=== PATIENT | female | born 1985 | race Caucasian/White ===

== ENCOUNTER 2020-03-21 04:01 | Emergency (ER) | payer MEDICAID, OTHER ==
[~2020-03-21] VITALS: Ht 167.6 cm; Wt 75.0 kg
--- NOTE | 2020-03-21 04:38 | NUR ---
PT PACING AROUND ROOM WITH PRESSURED SPEECH. PT'S BROTHER AT BEDSIDE ABLE TO CALM HER SOMEWHAT. SHE IS NOT COOPERATIVE WITH STAFF AT THIS TIME. SHE WAS AMBULATORY TO RESTROOM WITH A STEADY GAIT, URINE SAMPLE PROVIDED. LABELED AND PLACED IN LAB SPECIMEN BAG
--- NOTE | 2020-03-21 04:41 | NUR ---
ISRAEL GRIFFIN AT BEDSIDE EVALUATING PT
[2020-03-21] MEDS ORDERED: LORazepam 1MG TABLET ONE ×3 (04:51→19:43)
--- NOTE | 2020-03-21 04:54 | NUR ---
PT MEDICATED PER EMAR, 5 RIGHTS ADDRESSED.
[2020-03-21] MEDS ORDERED: LORazepam 1MG TABLET PO ONE ×2 (05:00→14:00)
--- NOTE | 2020-03-21 05:08 | NUR ---
PT KEEPS COMING OUT OF HER ROOM TALKING TO THIS RN. PT EASILY REDIRECTED TO HER ROOM AT THIS TIME. PROVIDED WITH PEN AND PAPER AND PT BACK IN ROOM WRITING ALL OVER PAPER PROVIDED.
[2020-03-21 05:17] LABS: MEAN CORPUSCULAR HEMOGLOBIN 30.6 pg (27.0-34.8); MEAN PLATELET VOLUME 9.3 fL (7.4-10.4); PLATELET COUNT 203 x10^3/uL (130-400); RED BLOOD COUNT 4.35 x10^6/uL (3.82-5.3); RED CELL DISTRIBUTION WIDTH 14.3 % (9.6-15.2)
[2020-03-21 05:21] LABS: ALANINE AMINOTRANSFERASE 24 U/L (12-78); ALBUMIN 3.8 g/dL (3.4-5.0); ANION GAP 6 mmol/L (5-15); CALCIUM 8.9 mg/dL (8.5-10.1); CHLORIDE 110 mmol/L (98-107); CREATININE 0.69 mg/dL (0.55-1.02); SALICYLATE LEVEL 2.9 mg/dL (2.8-20.0)
[2020-03-21 05:27] LABS: ALKALINE PHOSPHATASE 98 U/L (45-117); BILIRUBIN,TOTAL 0.4 mg/dL (0.2-1.0)
--- NOTE | 2020-03-21 05:35 | NUR ---
PT'S BROTHER RENE LORNE [phone]
--- NOTE | 2020-03-21 05:35 | NUR ---
PT STILL CONTINUING TO GO TO THE DOOR OF HER ROOM AND SPEAK TO SOMEONE IN THE HALLWAY THAT'S NOT THERE. SHE CONTINUES TO DENY AUDITORY OR VISUAL HALLUCINATIONS. REMAINS EASILY DIRECTED BACK TO ROOM AT THIS TIME.
[2020-03-21 05:41] LABS: MD YES
[2020-03-21 05:43] LABS: <PLATELET ESTIMATE> ADEQUATE; <RBC MORPHOLOGY> NORMAL; BASOS#(MANUAL) 0.09 x10^3/uL (0-0.1); BASOS% (MANUAL) 1 % (0-1); LYMPH#(MANUAL) 3.38 x10^3/uL (1-3.4); LYMPHS% (MANUAL) 36 % (22-44); MONOS#(MANUAL) 0.66 x10^3/uL (0.3-2.7); MONOS% (MANUAL) 7 % (2-9); REACTIVE LYMPHS # (MANUAL) 0.28 x10^3/uL (0-0); REACTIVE LYMPHS % (MANUAL) 3 % (0-0); SEG#(MANUAL) 4.98 x10^3/uL (1.8-6.8); SEGS% (MANUAL) 53 % (42-75)
[2020-03-21 05:44] LABS: <PLT MORPHOLOGY> NORMAL PLT MORPH
[2020-03-21 05:54] LABS: AMPHETAMINE SCREEN, URINE Negative (Negative); BARBITURATE SCREEN, URINE Negative (Negative); BENZODIAZEPINE SCREEN, URINE Negative (Negative); CANNABINOID SCREEN, URINE Positive (Negative); COCAINE SCREEN, URINE Negative (Negative); METHADONE SCREEN, URINE Negative (Negative); OPIATE SCREEN, URINE Negative (Negative)
--- NOTE | 2020-03-21 06:30 | NUR ---
PT HAS CALMED DOWN. NOW SITTING STILL ON [employer] PLAYING ON PHONE. NO LONGER PACING ROOM OR COMING TO THE DOOR.
--- NOTE | 2020-03-21 06:49 | NUR ---
received bedside report from ALLAN Moreland. zahra at bedside.
--- NOTE | 2020-03-21 07:13 | NUR ---
PT TRANSFERRED TO ROOM 38 WITH SITTER. ALL SAFETY MEASURES OBTAINED.
--- NOTE | 2020-03-21 07:15 | NUR ---
DIET TRAY ORDERED
--- NOTE | 2020-03-21 08:03 | NUR ---
pt stating "I HAVE A COURT DATE AT 9. WHY AM I IN THIS GOWN? WHEN IS THE DOCTOR COMING? I GOT TO GO!" SPOKE WITH PT BROTHER, HE IS GOING TO CALL THE COURT AND RESCHEDULE THE APPT. PT GIVEN DIET SORAYA.
--- NOTE | 2020-03-21 09:38 | NUR ---
LATE ENTRY FOR 0900 BROTHER CAME TO VISIT. BROTHER STATES THAT HE GOT HER COURT RESCHEDULED. PT IS SLEEPING ON GURNEY. NADN. RESPS EQUAL AND UNLABORED. ALL SAFETY MEASURES OBTAINED. SITTER AT DOORWAY.
--- NOTE | 2020-03-21 10:33 | NUR ---
BROTHER CALLED. PT TAKES ATIVAN 1MG AT HOME. PT ALSO HAD SOME ANTIBIOTIC RX'S THAT WERE PRESCRIBED TO HER IN SEP AND OCT 2019
--- NOTE | 2020-03-21 10:53 | NUR ---
PT CONTINUES TO SLEEP ON [facility]. ALL SAFETY MEASURES OBTAINED. SITTER AT DOORWAY. PT WITHIN FULL VIEW
--- NOTE | 2020-03-21 11:01 | NUR ---
DIET TRAY ORDERED
--- NOTE | 2020-03-21 12:40 | NUR ---
RECEIVED BEDSIDE REPORT FROM ALLAN ROMAN. PT USING PHONE AT THIS TIME.
--- NOTE | 2020-03-21 12:41 | NUR ---
LATE ENTRY FOR 1200: BEDSIDE REPORT TO AASHISH ROMAN RN.
--- NOTE | 2020-03-21 13:23 | NUR ---
PT RESTING ON [facility]. ALL SAFETY MEASURES OBTAINED. PT NOW ON LEGAL HOLD. SITTER AT DOOR. PT WITHIN FULL VIEW.
--- NOTE | 2020-03-21 13:24 | NUR ---
DIET TRAY DELIVERED.
--- NOTE | 2020-03-21 13:37 | NUR ---
spoke with brother. REALYED POC. BROTHER VERBALIZED UNDERSTANDING.
--- NOTE | 2020-03-21 14:30 | NUR ---
PT SUPER AGITATED. PT SITTING IN CHAIR. PT REQUESTING TO USE PHONE. STATED TO PATIENT THAT WILL DEPEND ON HER BEHAVIOR. WE WILL READDRESS IN 20 MINS. SPOKE WITH MAXX SANDERS REGARDING AGITATION. ORDERS TO FOLLOW
--- NOTE | 2020-03-21 14:37 | NUR ---
CHAIR, GOMES STAND, AND PEN TAKEN AWAY FROM PATIENT. PT WAS COOPERATIVE WITH REMOVING ITEMS FROM ROOM. REITERATED PHONE USE DEPENDENT ON BEHAVIOR. PT SITTING ON GURNEY. NADN. ALL SAFETY MEASURES OBTAINED. SITTER BY DOORWAY PT WITHIN FULL VIEW.
[2020-03-21] MEDS ORDERED: HALOPERIDOL 5 MG/ML IM PRN (15:00)
[2020-03-21] MEDS ORDERED: DIPHENHYDRAMINE 50 MG CAPSULE PO PRN (15:00)
[2020-03-21] MEDS ORDERED: DIPHENHYDRAMINE 50 MG/ML, 1ML IM PRN (15:00)
[2020-03-21] MEDS ORDERED: LORazepam 2 MG/ML, 1ML IM PRN (15:00)
--- NOTE | 2020-03-21 15:13 | NUR ---
PT CALM AND USING PHONE.
[2020-03-21] MEDS ORDERED: HALOPERIDOL 5 MG TABLET ONE (15:45)
[2020-03-21] MEDS: HALOPERIDOL 5 MG TABLET PO PRN (15:50)
--- NOTE | 2020-03-21 15:51 | NUR ---
PT NOW RESTING ON GURNEY. NADN. PT GIVEN WARM BLANKET. ALL SAFETY MEASURES OBTAINED. SITTER AT DOORWAY.
--- NOTE | 2020-03-21 16:01 | NUR ---
PT BROTHER BROUGHT IN HER FOLDER. BROTHER STATED HE DIDN'T WANT TO VISIT AT THIS TIME. GAVE FOLDER TO PT TO LOOK THROUGH. PT COULDN'T FIND THE PAPERS SHE WANTED. FOLDER IN PT BELONGING BAG WITH PT LABEL AND IN LOCKER.
--- NOTE | 2020-03-21 17:21 | NUR ---
PT RESTING ON VIVI. YUE. DIET TRAY ORDERED. ALL SAFETY MEASURES OBTAINED.
--- NOTE | 2020-03-21 17:55 | NUR ---
PACKET FAXED TO [facility] AND [facility]
--- NOTE | 2020-03-21 18:21 | NUR ---
MEAL PROVIDED TO PT. SITTER AT DOOR, ROOM REMAINS SECURED.
--- NOTE | 2020-03-21 18:36 | NUR ---
pt resting on gursushma. nadn. resps equal and unlabored. all safety measures obtained.
--- NOTE | 2020-03-21 19:02 | NUR ---
BEDSIDE REPORT TO ALLAN KATZ.
--- NOTE | 2020-03-21 19:05 | NUR ---
REPORT FROM JAD ASSUMED CARE OF PT
[2020-03-21] MEDS ORDERED: OLANZAPINE 10 MG TABLET ONE (19:42)
[2020-03-21] MEDS: LORazepam 1MG TABLET PO PRN (19:51)
[2020-03-21] MEDS: OLANZAPINE 10 MG TABLET PO SCH (19:51)
--- NOTE | 2020-03-21 19:55 | NUR ---
PT AWAKENS EASILY MEDICATED PT WITH DAILY MEDS AND ATIVAN, PT ATE MEAL PROVIDED EARLIER, SITTER AT DOORWAY, ROOM SECURE PT IN NAD
[2020-03-21] MEDS ORDERED: ACETAMINOPHEN 650 MG/20.3 ML UDC ONE (20:04)
--- NOTE | 2020-03-21 21:18 | NUR ---
Patient is resting comfortably in bed.
--- NOTE | 2020-03-21 23:43 | NUR ---
Patient is resting comfortably in bed.
--- NOTE | 2020-03-22 01:00 | NUR ---
Patient is resting comfortably in bed.
--- NOTE | 2020-03-22 02:00 | NUR ---
Patient is resting comfortably in bed.
--- NOTE | 2020-03-22 04:06 | NUR ---
Patient is resting comfortably in bed.
--- NOTE | 2020-03-22 06:56 | NUR ---
report of pt from glen rogers and assuming care of pt at this time.
--- NOTE | 2020-03-22 07:10 | NUR ---
pt asleep in [facility] at this time; sascha. sitter outside ofpt room for direct observation of pt at this time.
--- NOTE | 2020-03-22 07:18 | NUR ---
pt brother called for updates on pt. Pt brother says he will call back mid day to check on pt and see how she is doing.
[2020-03-22] MEDS ORDERED: OLANZAPINE 10 MG TABLET ONE (09:57)
[2020-03-22] MEDS: OLANZAPINE 10 MG TABLET PO SCH (10:05)
--- NOTE | 2020-03-22 10:07 | NUR ---
REPORT RECEIVED FROM ALLAN AVENDAÑO, THIS RN HAS ASSUMED CARE. PT HAS ALREADY HAD BREAKFAST. ROOM IS SECURE, SITTER MONITORING FROM [facility] FOR SAFETY. PT IS A&OX4, RESPS EVEN AND UNLABORED. PT DENIES PAIN. PT DENIES SUICIDALITY.
--- NOTE | 2020-03-22 11:10 | NUR ---
PT'S BROTHER IS PATRICIA VILLELA, NUMBER [phone] PROVIDED IF STAFF HAVE ANY QUESTIONS ABOUT PT HISTORY.
--- NOTE | 2020-03-22 11:32 | NUR ---
pt sleeping, resps even and unlabored. sitter monitoring from bedside for safety, room remains secure.
--- NOTE | 2020-03-22 11:45 | NUR ---
pt up to bathroom with sitter assist.
--- NOTE | 2020-03-22 12:27 | NUR ---
PT SLEEPING ON GURNEY, RESPS EVEN AND UNLABORED. SITTER MONITORING FROM [facility] FOR SAFETY. HOSPITAL BED REQUESTED.
--- NOTE | 2020-03-22 13:08 | NUR ---
pt still sleeping, repss even and unlabored. nadn. sitter monitoring from hallway for safety, room remains secure.
--- NOTE | 2020-03-22 13:22 | NUR ---
hospital bed requested a second time, per staff radiographer there is a hospital wide shortage, staff continuing to search for bed.
--- NOTE | 2020-03-22 13:41 | NUR ---
REPORT GIVEN TO ALLAN MUELLER WHO IS ASSUMING CARE. PT REMAINS ASLEEP, RESPS EVEN AND UNLABORED. SITTER MONITORING FROM [facility] FOR SAFETY. ROOM SECURE. HOSPITAL BED HAS ARRIVED, RECEIVING RN AWARE OF NEED TO COMPLETE MED REC AND PLACE PT ON HOSPITAL BED ONCE SHE AWAKES.
--- NOTE | 2020-03-22 13:52 | NUR ---
REPORT FROM ALLAN GONZALEZ. PT CARE RESPONSIBILITIES ASSUMED.
--- NOTE | 2020-03-22 15:57 | NUR ---
PT MOVED TO HOSPITAL BED. PROVIDED WITH FRESH WARM BLANKETS. DENIES ANY FURTHER NEEDS OR CONCERNS AT THIS TIME. SITTER REMAINS IN DIRECT LINE OF SIGHT.
--- NOTE | 2020-03-22 17:39 | NUR ---
PT UP TO PHONE WITH STAFF STANDBY, TO CALL BROTHER.
--- NOTE | 2020-03-22 18:03 | NUR ---
MEAL TRAY GIVEN TO PATIENT.
--- NOTE | 2020-03-22 19:35 | NUR ---
PT UP TO PHONE WITH STAFF STANDBY. PT PROVIDED WITH EXTRA SNACKS AND DRINKS, PER REQUEST. DENIES ANY FURTHER NEEDS OR CONCERNS AT THIS TIME.
--- NOTE | 2020-03-23 01:56 | NUR ---
REPORT OF PT FROM ALLAN MUELLER AND ASSUMING CARE OF PT AT THIS TIME.
--- NOTE | 2020-03-23 02:50 | NUR ---
PT ASLEEP IN [facility] AT THIS TIME; YUE. SITTER OUTSIDE OF PT ROOM FOR DIRECT OBSERVATION OF PT AT THIS TIME.
--- NOTE | 2020-03-23 03:32 | NUR ---
PT ASLEEP IN [facility] AT THIS TIME; YUE. SITTER OUTSIDE OF PT ROOM FOR DIRECT OBSERVATION OF PT AT THIS TIME.
--- NOTE | 2020-03-23 04:19 | NUR ---
PT ASLEEP IN [facility] AT THIS TIME; YUE. SITTER OUTSIDE OF PT ROOM FOR DIRECT OBSERVATION OF PT AT THIS TIME.
--- NOTE | 2020-03-23 05:46 | NUR ---
pt ambulates to restroom with steady gait at this time. sitter outside of restroom with pt for observation of pt and staff safety.
[2020-03-23] MEDS ORDERED: LORazepam 1MG TABLET ONE ×2 (06:22→13:53)
[2020-03-23] MEDS: LORazepam 1MG TABLET PO PRN ×2 (06:27→13:55)
--- NOTE | 2020-03-23 06:28 | NUR ---
PT MEDICATED PER MAR FOR ANXIETY. PT VSS AND UPDATED IN EMR AT THIS TIME. PT RESTING IN [facility], COOPERATIVE, WITH SITTER OUTSIDE OF ROOM FOR DIRECT OBSERVATION OF PT.
[2020-03-23] MEDS: PLEASE ENTER WEIGHT MC SCH ×2 (07:28→11:22)
--- NOTE | 2020-03-23 07:43 | NUR ---
REPORT RECEIVED FROM KATERYNA LEMUS. PT SLEEPING IN BED, NO DISTESS. SITTER REMAINS AT BEDSIDE, ROOM REMAINS SECURED. MEAL TRAYS ORDERED. CONT TO MONITOR.
--- NOTE | 2020-03-23 08:45 | NUR ---
PT GIVEN MEAL TRAY AND COFFEE PER REQUEST. PT WANTING TO USE PHONE, WILL ASSIST WHEN ABLE. SITTER AT BESIDE, ROOM REMAINS SECURED. CONT TO MONITOR.
[2020-03-23] MEDS: OLANZAPINE 10 MG TABLET PO SCH (09:00)
--- NOTE | 2020-03-23 10:10 | NUR ---
REPORT FROM ALLAN LOZANO
--- NOTE | 2020-03-23 10:12 | NUR ---
REPOR GIVEN TO JANIS LEMUS.
--- NOTE | 2020-03-23 10:30 | NUR ---
PT SITTING UP IN [facility] NOTED. AWAKE/ALERT. ROOM SECURE, SITTER PRESENT.
--- NOTE | 2020-03-23 11:03 | NUR ---
MEAL TRAY ORDERED.
--- NOTE | 2020-03-23 12:07 | NUR ---
PT PROVIDED SI APPROPRIATE MEAL TRAY. SPEAKING CALMLY Andreina SANDERS, SOCIAL SERVICES TECHNICIAN.
--- NOTE | 2020-03-23 12:47 | NUR ---
PT REQUESTING CONVERSATION W RN AND REQUESTING TO USE PHONE. PT WITH PRESSURED, BUT COHERENT SPEECH. RESTLESS. DENIES SI/HI. PT REQUESTING TO WRITE A LETTER, PROVIDED PEN AND PAPER. PT EDUCATED ON APPROPRIATE BEHAVIOR WITH WRITING UTENSIL AND DEMONSTRATES UNDERSTANDING. SITTER AWARE. PT COOPERATIVE AND POLITE AT THIS TIME.
[2020-03-23] MEDS ORDERED: PLEASE ENTER WEIGHT MC SCH (13:00)
--- NOTE | 2020-03-23 13:09 | NUR ---
REPORT RECEIVED FROM ALLAN BRUCE. [facility].
--- NOTE | 2020-03-23 14:04 | NUR ---
PT STARTED TO CRY AND WAS SITTING ON THE FLOOR HAVING A BREAKDOWN. PT MEDICATED PER OCT. TOOK PT FOR A WALK AROUND THE UNIT SO SHE COULD STRETCH HER LEGS.
--- NOTE | 2020-03-23 14:57 | NUR ---
PT RESTING COMFORTABLY IN HOSPITAL BED.
--- NOTE | 2020-03-23 18:07 | NUR ---
MEAL TRAY PROVIDED
--- NOTE | 2020-03-23 18:43 | NUR ---
PT REQUESTING TO USE THE PHONE. PT HAS USED THE PHONE MULTIPLE TIMES TODAY. PT WAS TOLD TO STAY IN HER ROOM. PT IS BECOMING SLIGHTLY AGITATED THE TV IN HER ROOM DOESNT WORK. PT SAID "SO YOU PUT THE NIGGER IN THE ROOM WITH NO TV? I SEE HOW IT IS"
--- NOTE | 2020-03-23 18:52 | NUR ---
Report received from ALLAN Albarado. This RN to assume care.
[2020-03-23] MEDS ORDERED: DIPHENHYDRAMINE 50 MG CAPSULE ONE (19:11)
--- NOTE | 2020-03-23 19:20 | NUR ---
Patient stating she needs to know when she is going to the next facility. Advised patient that we are waiting on the receiving facility to call us back to accept. Patient became agitated asking why she was going to an inpatient facility and demanding the chart of all the doctors who made that decision. Patient agreed to take Benedryl to help her cope and sleep. After meds admin, patient stating she wants to use the phone. Advised patient she cannot use the phone for the rest of the night. According to the day shift RN, patient was using the phone constantly all day. Patient became more agitated. Advised patient she can have more meds per mar in a couple hours. Patient yells to this RN, "Get the fuck out bitch." Room secured, belongings in locked cabinet, sitter outside.
--- NOTE | 2020-03-23 20:11 | NUR ---
Patient sleeping in hospital bed. Respirations even and unlabored. Room secured, belongings in locked cabinet, sitter outside.
--- NOTE | 2020-03-23 21:07 | NUR ---
Patient sleeping in hospital bed. Respirations even and unlabored. Room secured, belongings in locked cabinet, sitter outside.
--- NOTE | 2020-03-23 22:15 | NUR ---
Patient sleeping in hospital bed. Respirations even and unlabored. Room secured, belongings in locked cabinet, sitter outside.
--- NOTE | 2020-03-23 23:15 | NUR ---
Patient up and requesting meds. Meds admin per mar. Patient calm and cooperative at this time. Room secure, belongings in locked cabinet, sitter outside.
[2020-03-23] MEDS ORDERED: HALOPERIDOL 5 MG TABLET ONE (23:24)
[2020-03-23] MEDS: HALOPERIDOL 5 MG TABLET PO PRN (23:25)
--- NOTE | 2020-03-23 23:51 | NUR ---
REPORT TAKEN FROM OFFGOING RN.
--- NOTE | 2020-03-24 | NUR ---
PATIENT RESTING IN BED, NO NOTED NEEDS AT THIS TIME. SITTER IN VIEW OF PATIENT. WILL CONITNUE TO MONITOR.
--- NOTE | 2020-03-24 01:05 | NUR ---
PATIENT RESTING IN BED, NO NOTED NEEDS AT THIS TIME. SITTER IN VIEW OF PATIENT. WILL CONITNUE TO MONITOR.
--- NOTE | 2020-03-24 01:13 | NUR ---
BREAK RN: PT LAYING IN BED, SLEEPING, RESPIRATIONS EVEN AND UNLABORED. PT IN VIEW OF SITTER.
--- NOTE | 2020-03-24 02:09 | NUR ---
PATIENT RESTING IN BED, NO NOTED NEEDS AT THIS TIME. SITTER IN VIEW OF PATIENT. WILL CONITNUE TO MONITOR.
--- NOTE | 2020-03-24 03:10 | NUR ---
PATIENT RESTING IN BED, NO NOTED NEEDS AT THIS TIME. SITTER IN VIEW OF PATIENT. WILL CONITNUE TO MONITOR.
--- NOTE | 2020-03-24 04:22 | NUR ---
PATIENT RESTING IN BED, NO NOTED NEEDS AT THIS TIME. SITTER IN VIEW OF PATIENT. WILL CONITNUE TO MONITOR.
--- NOTE | 2020-03-24 04:50 | NUR ---
REPORT GIVEN TO ALLAN AVENDAÑO
--- NOTE | 2020-03-24 05:02 | NUR ---
REPORT OF PT FROM ALLAN PEARSON AND ASSUMING CARE OF PT AT THIS TIME. PT ASLEEP IN [facility] AT THIS TIME; YUE. SITTER OUTSIDE OF PT ROOM FOR DIRECT OBSERVATION OF PT AT THIS TIME.
--- NOTE | 2020-03-24 06:12 | NUR ---
PT ASLEEP IN [facility] AT THIS TIME; YUE. SITTER OUTSIDE OF PT ROOM FOR DIRECT OBSERVATION OF PT. MEAL TRAY ORDERED FOR PT BREAKFAST AT THIS TIME.
--- NOTE | 2020-03-24 07:02 | NUR ---
Report recieved from Luis LEMUS. Safety precautions in place.
[2020-03-24 07:42] VITALS: BP 124/88
--- NOTE | 2020-03-24 08:08 | NUR ---
Meal provided, steady ambulation to bathroom. Safety precautions in place
[2020-03-24] MEDS ORDERED: OLANZAPINE 5 MG TABLET ONE (08:37)
[2020-03-24] MEDS ORDERED: OLANZAPINE 5 MG TABLET PO SCH (09:00)
--- NOTE | 2020-03-24 11:52 | NUR ---
THROUGHPUT RN: PACKET W/ UPDATES FAXED TO [facility] AND [facility].
--- NOTE | 2020-03-24 12:23 | NUR ---
THROUGHPUT RN: CALLED AND SPOKE W/ DOG OR HORSE RACING OFFICIAL AT [facility] WHO STATES THEY ARE AT [facility]ACITY.
--- NOTE | 2020-03-24 12:36 | NUR ---
MEAL PROVIDED, SAFETY PRECAUTIONS IN PLACE.
--- NOTE | 2020-03-24 12:39 | NUR ---
THROUGHPUT RN: SPOKE W/ NAKIA FROM [facility]. PT IS 10TH ON THEIR LIST.
--- NOTE | 2020-03-24 13:51 | NUR ---
REPORT FROM ALLAN CHOE. PT CARE RESPONSIBILTIES ASSUMED.
--- NOTE | 2020-03-24 15:04 | NUR ---
PT AWAKE AND ASKING TO GO HOME. PT REORIENTED TO SITUATION, REMINDED OF LEGAL HOLD AND PLAN OF CARE. DENIES ANY FURTHER NEEDS OR CONCERNS AT THIS TIME.
[2020-03-24] MEDS ORDERED: IBUPROFEN 800 MG TABLET ONE (17:21)
--- NOTE | 2020-03-24 17:22 | NUR ---
PT REQUESTING 800MG IBUPROFEN FOR HEADACHE. ERP NOTIFIED. VERBAL ORDERS RECEIVED AND ADMINISTERED. PT AWARE OF IMPENDING DISCHARGE, TRYING TO CALL AND NOTIFY FAMILY AT THIS TIME.
[2020-03-24] MEDS ORDERED: IBUPROFEN 800 MG TABLET PO ONE (18:00)
--- NOTE | 2020-03-24 18:10 | NUR ---
BROTHER CONTACTED. STATES HE IS ON HIS WAY, AND WILL BE WAITING FOR PATIENT UNDER THE ER CANOPY. BELONGINGS RETURNED TO PATIENT, PT ASSISTED TO DISCHARGE DESK. DENIES ANY FURTHER NEEDS OR CONCERNS AT THIS TIME.
== END 2020-03-24 18:11 | disposition home or self-care (01) ==
LOC: ED 06:09
DX: F15.19 Other stimulant abuse with unspecified stimulant-induced disorder (principal); F22 Delusional disorders; Z85.3 Personal history of malignant neoplasm of breast
CPT/HCPCS: 36415; 80053; 80307; 84703; 85025; 99285

== ENCOUNTER 2020-03-31 09:45 | Emergency (ER) | payer MEDICAID ==
[~2020-03-31] VITALS: Ht 167.6 cm; Wt 64.3 kg
[2020-03-31 09:48] VITALS: BP 127/75
--- NOTE | 2020-03-31 10:29 | NUR ---
PT SPEAKING IN A BRITTISH ACCENT AND ASKING QUESTIONS REGARDING RECEIVING BLOOD IF SHE WAS IN AN ACCIDENT BY HER MOM EVEN IF SHE IS A [employer] WITNESS AND IS RH NEGATIVE. PT TO BATHROOM TO GIVE URINE SAMPLE. SISTER IN LAW WITH PT AND STATES TWO DAYS AGO PT STARTED FLIPPING. HAD BEEN DOING WELL BEFORE THAT. PT STARTED TALKING IN JAPEN[place] YESTERDAY. SISTER IN LAW STATES PT WILL FREAK OUT IF WE TRY TO DRAW BLOOD AND WILL WANT TO LEAVE. PA MADE AWARE AND BLOOD DRAW TO BE DELAYED AT THIS TIME. PT DENIES FEELING HOMICIDAL AND SUICIDAL.
[2020-03-31 11:00] LABS: HCG UR SG 1.017 (1.003-1.030)
[2020-03-31 11:04] LABS: MICROSCOPIC INDICATED
--- NOTE | 2020-03-31 11:07 | NUR ---
RECEIVED REPORT FROM ALLAN JONES.
[2020-03-31] MEDS ORDERED: DIPHENHYDRAMINE 50 MG/ML, 1ML ONE (11:27)
[2020-03-31] MEDS ORDERED: METOCLOPRAMIDE 5 MG/ML, 2ML ONE (11:27)
--- NOTE | 2020-03-31 11:46 | NUR ---
PT ALLOWED LAB TO DRAW BLOOD.
--- NOTE | 2020-03-31 11:46 | NUR ---
FAVIO, PSYCH HEART DOCTOR AT BEDSIDE ASSESSING PT.
--- NOTE | 2020-03-31 11:55 | NUR ---
YELLOW SLIP SENT TO PHARMACY FOR MEDS PER OCT.
[2020-03-31] MEDS ORDERED: RISPERIDONE 1 MG TABLET PO ONE (12:00)
[2020-03-31] MEDS ORDERED: VENLAFAXINE 37.5MG TABLET PO ONE (12:00)
[2020-03-31 12:04] LABS: AMPHETAMINE SCREEN, URINE Negative (Negative); BARBITURATE SCREEN, URINE Negative (Negative); BENZODIAZEPINE SCREEN, URINE Negative (Negative); CANNABINOID SCREEN, URINE Positive (Negative); COCAINE SCREEN, URINE Negative (Negative); METHADONE SCREEN, URINE Negative (Negative); OPIATE SCREEN, URINE Negative (Negative)
[2020-03-31 12:04] LABS: BASOPHILS # (AUTO) 0.01 x10^3/uL (0-0.1); BASOPHILS % (AUTO) 0 % (0-1); EOSINOPHILS # (AUTO) 0.04 x10^3/uL (0-0.4); EOSINOPHILS % (AUTO) 1 % (1-7); LYMPHOCYTES # (AUTO) 1.91 x10^3/uL (1-3.4); LYMPHOCYTES % (AUTO) 29 % (22-44); MD NO; MEAN PLATELET VOLUME 8.8 fL (7.4-10.4); MONOCYTES # (AUTO) 0.69 x10^3/uL (0.2-0.8); MONOCYTES % (AUTO) 11 % (2-9); NEUTROPHILS # (AUTO) 3.86 x10^3/uL (1.8-6.8); NEUTROPHILS % (AUTO) 59 % (42-75); PLATELET COUNT 231 x10^3/uL (130-400); RED BLOOD COUNT 4.27 x10^6/uL (3.82-5.3); RED CELL DISTRIBUTION WIDTH 13.9 % (9.6-15.2)
[2020-03-31 12:08] LABS: ALBUMIN 3.5 g/dL (3.4-5.0); ANION GAP 8 mmol/L (5-15); CALCIUM 8.3 mg/dL (8.5-10.1); CHLORIDE 109 mmol/L (98-107); CREATININE 0.51 mg/dL (0.55-1.02); SALICYLATE LEVEL 1.7 mg/dL (2.8-20.0)
== END 2020-03-31 12:53 | disposition home or self-care (01) ==
LOC: ED 10:05
DX: F31.9 Bipolar disorder, unspecified (principal); R11.2 Nausea with vomiting, unspecified; R00.0 Tachycardia, unspecified; Z85.3 Personal history of malignant neoplasm of breast
CPT/HCPCS: 36415; 80048; 80307; 81001; 81025; 82040; 84703; 85025; 87077; 87086; 87186; 99284